=== PATIENT | male | born 1985 | race Caucasian/White ===

== ENCOUNTER 2016-12-28 16:10 | Observation (INO) | payer BC ==
[2016-12-28] MEDS: RESP: ALBUTEROL 2.5 MG/IPRATROPIUM 0.5 MG NEB (SCH) NEB ×5 (12:00→23:49)
[~2016-12-28 16:10] MED LIST: IOHEXOL 350 MG/ML 10 ML VIAL (for RAD DIAG) IVCONTRAST ONE; MEDR4PAK PO; PEDISOL2 OROPHARYNG; RESP: ALBUTEROL 2.5 MG/3 ML NEB (PRN) NEB; VENTAER INH
--- NOTE | 2016-12-28 17:11 | HHI.HP ---
[facility] Admission Diagnosis Diagnoses: (1) Hypoxia Diagnosis: Principal (2) Bronchospasm Diagnosis: Principal (3) Leukocytosis Diagnosis: Principal (4) Hyperglycemia Diagnosis: Principal Chief Complaint: Shortness of breath and dyspnea Travel History International Travel<30 Days: No (\) Contact w/Intl Traveler <30 Da: No (\) Traveled to Known Affected Are: No Sepsis Criteria SIRS Criteria (2 or more): Heart rate over 90, WBC > 39822, < 4000 or > 10% bands Sepsis Criteria (SIRS+source): Infect source susp/known Criteria Outcome: Meets sepsis criteria History of Present Illness Written by Alfa Wallace, acting as scribe for Dr. Damon on 12/28/16 at 17 :01. 31-year-old male with no chronic medical illnesses who presented to hospital because of shortness of breath, dyspnea. Patient states that he was in normal state of health approximately one week ago he started developing cold symptoms with upper respiratory symptoms to include rhinorrhea, sore throat, cough, congestion. Patient has been using [id number] medications to include nasal spray, Mucinex, cough medicine with minimal improvement. Patient did improve over the last couple days but then yesterday he started having worsening of his symptoms with shortness of breath, could not breathe, he tried to drink enough fluids and took a hot steam shower without any significant improvement. Patient states that his shortness of breath was worsened whenever he tried to move. He denied any chest pain, nausea, vomiting, cyanosis, fever he stated he had some slight chills. He did vomit whenever he coughed. The patient drove himself to the ER in [place] for evaluation. Patient had workup done and found to have leukocytosis, hypoxia. He was given Solu-Medrol, oxygen supplementation, nebulizer treatments with minimal relief. Patient is recommended continued observation the hospital and management. At the time evaluating patient he states that he is feeling much better. He still has significant and profound wheezing. Patient still coughing and cannot complete full sentences when he speaks. Review of Systems Constitutional: COMPLAINS OF: Chills Ears, nose, mouth, throat: COMPLAINS OF: Nasal discharge, Throat pain, Running Nose Respiratory: COMPLAINS OF: Cough, Sputum production, Shortness of breath Except as stated in HPI: all other systems reviewed are Neg Past Family Social History Past Medical History No chronic illnesses Past Surgical History No previous surgeries Reported Medications No home medications Allergies: Coded Allergies: Penicillins (Verified Allergy, Mild, 12/28/16) Family History Reviewed and unremarkable Social History Patient drinks alcohol occasionally. Denies any tobacco or illicit drug use. Patient does work in a [employer] Physical Exam Physical Exam GENERAL: Well-developed, well-nourished, in no acute distress. alert and orientated HEENT: Head is normocephalic without any lesions or masses noted. Facial features are symmetric. Eyes: Pupils equal round reactive to light. Extraocular muscles are intact. Conjunctivae were clear. Oropharyngeal: Pharynx without any erythema edema. Tongue is midline without deviation. Buccal mucosa is moist without any masses or lesions NECK: Supple without any masses. Trachea midline no deviation. No JVD, no bruits are appreciated CARDIAC: Regular rhythm, regular rate. S1/S2 are heard. No murmurs gallops or rubs. LUNGS: Profound wheezing bilaterally, no rhonchi or rales. No use of accessory muscles on inspiration or expiration. ABDOMEN: Soft, nontender. Nondistended. Bowel sounds heard in all 4 quadrants. No organomegaly or masses. Negative rebound, negative guarding EXTREMITIES: No edema, pulses are equal bilaterally. No cyanosis or clubbing NEUROLOGY: Mood and affect appear appropriate. Cranial nerves II through XII grossly intact. Muscle strength 5/5 in upper and lower extremities bilaterally. Deep tendon reflexes are 2+ in upper and lower extremities bilaterally. Septic Shock Reassessment Lungs: Other (profound wheezing) Skin: Coker Peripheral Pulses: Bounding Right Radial Bounding Left Radial Caprini VTE Risk Assessment Caprini VTE Risk Assessment: No/Low Risk (score <= 1) Caprini Risk Assessment Model Point Value = 1 Point Value = 2 Point Value = 3 Point Value = 5 Age 41-60 Minor surgery BMI > 25 kg/m2 Swollen legs Varicose veins or History of unexplained or recurrent spontaneous Oral contraceptives or hormone replacement Sepsis (< 1 month) Serious lung disease, including pneumonia (< 1 month) Abnormal pulmonary function Acute myocardial infarction Congestive heart failure (< 1 month) History of inflammatory bowel disease Medical patient at bed rest Age 61-74 Arthroscopic surgery Major open surgery (> 45 min) Laparoscopic surgery (> 45 min) Malignancy Confined to bed (> 72 hours) Immobilizing plaster cast Central venous access Age >= 75 History of VTE Family history of VTE Factor V Leiden Prothrombin [id number] Lupus anticoagulant Anticardiolipin antibodies Elevated serum homocysteine Heparin-induced thrombocytopenia Other congenital or acquired thrombophilia Stroke (< 1 month) Elective arthroplasty Hip, pelvis, or leg fracture Acute spinal cord injury (< 1 month) Prophylaxis Regimen Total Risk Factor Score Risk Level Prophylaxis Regimen 0-1 Low Early ambulation 2 Moderate Order ONE of the following: *Sequential Compression Device (SCD) *Heparin 5000 units SQ BID 3-4 Higher Order ONE of the following medications: *Heparin 5000 units SQ TID *Enoxaparin/Lovenox 40 mg SQ daily (WT < 150 kg, CrCl > 30 mL/min) *Enoxaparin/Lovenox 30 mg SQ daily (WT < 150 kg, CrCl > 10-29 mL/min) *Enoxaparin/Lovenox 30 mg SQ BID (WT < 150 kg, CrCl > 30 mL/min) AND/OR *Sequential Compression Device (SCD) 5 or more Highest Order ONE of the following medications: *Heparin 5000 units SQ TID (Preferred with Epidurals) *Enoxaparin/Lovenox 40 mg SQ daily (WT < 150 kg, CrCl > 30 mL/min) *Enoxaparin/Lovenox 30 mg SQ daily (WT < 150 kg, CrCl > 10-29 mL/min) *Enoxaparin/Lovenox 30 mg SQ BID (WT < 150 kg, CrCl > 30 mL/min) AND *Sequential Compression Device (SCD) Assessment and Plan Assessment and Plan Acute bronchospasm with hypoxia secondary to upper respiratory infection Continue O2 supplementation maintain O2 sats greater than 92% Pt given zithromax. strep and influenza testing neg Continue Solu-Medrol IV Continue nebulizer treatments Incentive spirometry f/u legionella and bronchospasm Leukocytosis Could be reactive or secondary to infection We'll anticipate worsening with steroid use Hyperglycemia Likely from steroid administration, monitor DVT prevention Low risk, early ambulation This note was transcribed by adriana Wallace. I personally performed the history, physical exam, and medical decision making; and confirmed the accuracy of information in the transcribed note. Authenticated by Dayne Damon on 18:10. Alfa Wallace Dec 28, 2016 17:11 Dayne Damon MD Dec 28, 2016 18:09
[2016-12-28 17:15] VITALS: O2SAT 93
[2016-12-28] MEDS ORDERED: CALCIUM CARBONATE 500 MG CHEWABLE TAB CHEW PRN (17:15)
[2016-12-28] MEDS ORDERED: ONDANSETRON HCL 4 MG/2 ML VIAL IV PRN (17:15)
[2016-12-28] MEDS ORDERED: MAGNESIUM HYDROXIDE SUSP 30 ML CUP PO PRN (17:15)
[2016-12-28] MEDS ORDERED: ACETAMINOPHEN 325 MG TAB PO PRN (17:15)
[2016-12-28] MEDS ORDERED: DOCUSATE SODIUM 100 MG CAP PO PRN (17:15)
[2016-12-28] MEDS: methylPREDNISolone SOD SUCC 125 MG/2 ML VIAL IV PUSH SCH (17:49)
[2016-12-28 19:35] VITALS: O2SAT 93
[2016-12-28 20:00] VITALS: BP 138/77; PULSE 122; RESP 18; TEMP 96.5; O2SAT 94
[2016-12-29] VITALS (8 sets, daily range): BP systolic 109–146; BP diastolic 67–80; PULSE 118–128; RESP 20–21; TEMP 95.6–98.9; O2SAT 91–95
[2016-12-29] MEDS: methylPREDNISolone SOD SUCC 125 MG/2 ML VIAL IV PUSH SCH ×3 (00:28→18:01)
[2016-12-29] MEDS: TEMAZEPAM 15 MG CAP PO PRN ×2 (00:31→21:40)
[2016-12-29] MEDS: RESP: ALBUTEROL 2.5 MG/IPRATROPIUM 0.5 MG NEB (SCH) NEB ×5 (03:26→20:46)
[2016-12-29 07:02] LABS: AUTOMATED NEUTROPHIL # 24.7 TH/MM3 (1.8-7.7); BASOPHIL # 0.1 TH/MM3 (0-0.2); BASOPHIL % 0.2 % (0.0-2.0); EOSINOPHIL % 0.1 % (0.0-4.0); HEMATOCRIT 43.9 % (39.0-51.0); LYMPH % 5.3 % (9.0-44.0); LYMPHOCYTE # 1.4 TH/MM3 (1.0-4.8); MEAN CORPUSCULAR HEMOGLOBIN 30.9 PG (27.0-34.0); MEAN CORPUSCULAR HGB CONC 33.6 % (32.0-36.0); MONO % 0.7 % (0.0-8.0); NEUT % 93.7 % (16.0-70.0); PLATELET COUNT 388 TH/MM3 (150-450); RED BLOOD COUNT 4.77 MIL/MM3 (4.50-5.90); RED CELL DISTRIBUTION WIDTH 12.9 % (11.6-17.2); WHITE BLOOD COUNT 26.4 TH/MM3 (4.0-11.0)
[2016-12-29 07:14] LABS: HEMO FLAGS AUTO DIFF
[2016-12-29 07:49] LABS: SCAN/DIFF AUTO DIFF CONFIRMED
[2016-12-29] MEDS: AZITHROMYCIN 250 MG TAB PO SCH (09:49)
--- NOTE | 2016-12-29 11:54 | HHI.PR ---
Subjective Remarks Patient reports that his dyspnea is improved since yesterday, says that making about 3 rounds walking within his room gets him tired, still feels like he cannot walk one block without getting winded. While sedentary, has no issues, no distress Confirms that taking deep breaths causes him to cough profoundly. Case discussed with respiratory therapy and nursing, patient is barely saturating at 91% on room air. Objective Vital Signs Date Time Temp Pulse Resp B/P (MAP) Pulse Ox O2 Delivery O2 Flow Rate FiO2 12/29/16 08:00 Nasal Cannula 3.00 12/29/16 08:00 97.2 118 20 130/80 (97) 91 12/29/16 07:21 95 Nasal Cannula 3.00 12/29/16 04:04 20 94 12/29/16 00:45 94 Nasal Cannula 12/29/16 00:00 96.4 119 20 146/73 (97) 91 12/28/16 20:00 96.5 122 18 138/77 (97) 94 12/28/16 19:35 93 Nasal Cannula 3.00 12/28/16 17:15 93 Nasal Cannula 3.00 I/O 12/28/16 12/28/16 12/28/16 12/29/16 12/29/16 12/29/16 07:00 15:00 23:00 07:00 15:00 23:00 Intake Total 500 ml Balance 500 ml Intake Oral 500 ml # Voids 3 Result Diagram: 12/29/16 0640 Objective Remarks No acute distress lying in bed Moderate expiratory wheezing with good breath sounds, has profound coughing when taking deep breaths, no cyanosis Dayne Damon MD Dec 29, 2016 11:54
[2016-12-29] MEDS ORDERED: IOHEXOL 350 MG/ML 10 ML VIAL (for RAD DIAG) IVCONTRAST ONE (13:26)
--- NOTE | 2016-12-29 13:36 | RADRPT ---
EXAM DATE/TIME: 12/29/2016 13:17 [facility] COMPARISON: No previous studies available for comparison. INDICATIONS : Short of breath with dyspnea. Evaluate for embolism. IV CONTRAST: 65 cc Omnipaque 350 (iohexol) IV RADIATION DOSE: 13.51 CTDIvol (mGy) MEDICAL HISTORY : None SURGICAL HISTORY : None. ENCOUNTER: Initial ACUITY: 4 - 6 days PAIN SCALE: 0/10 LOCATION: chest TECHNIQUE: Volumetric scanning of the chest was performed using a pulmonary embolism protocol MIP images were re constructed. Using automated exposure control and adjustment of the mA and/or kV according to patien t size, radiation dose was kept as low as reasonably achievable to obtain optimal diagnostic quality images. DICOM format image data is available electronically for review and comparison. Follow-up recommendations for detected pulmonary nodules are based at a minimum on nodule size and pa tient risk factors according to Fleischner Society Guidelines. FINDINGS: PULMONARY ARTERIES: No filling defects are seen in the pulmonary arteries through the segmental level. LUNGS: There is no consolidation or pneumothorax . Minimal dependent atelectasis. No concerning pulmonary n odule is visualized. PLEURAE: There is no pleural thickening or pleural effusion. MEDIASTINUM: There is good visualization of the great vessels of the middle mediastinum. No evidence of mediastin al or hilar adenopathy/mass. MUSCULOSKELETAL: Within normal limits for patient age. MISCELLANEOUS: The visualized upper abdominal organs demonstrate no acute abnormality. CONCLUSION: 1. Negative for pulmonary embolism. Minimal dependent atelectasis in the lungs. Omero Avelar MD on December 29, 2016 at 13:31 Board Certified Radiologist. This report was verified electronically.
[2016-12-29] MEDS ORDERED: SODIUM CHLOR 0.9% 1000 ML INJ 1,000 ML IV ONE (14:00)
[2016-12-30] VITALS: BP 137/77; PULSE 102; RESP 20; TEMP 98; O2SAT 91
[2016-12-30] MEDS: methylPREDNISolone SOD SUCC 125 MG/2 ML VIAL IV PUSH SCH ×2 (00:56→09:26)
[2016-12-30 03:56] VITALS: O2SAT 94
[2016-12-30] MEDS: RESP: ALBUTEROL 2.5 MG/IPRATROPIUM 0.5 MG NEB (SCH) NEB ×4 (03:56→10:36)
[2016-12-30 04:12] VITALS: RESP 20
[2016-12-30 06:35] LABS: POTASSIUM 4.2 MEQ/L (3.5-5.1)
[2016-12-30 06:40] LABS: AUTOMATED NEUTROPHIL # 30.4 TH/MM3 (1.8-7.7); BASOPHIL % 0.1 % (0.0-2.0); EOSINOPHIL % 0.1 % (0.0-4.0); HEMATOCRIT 39.5 % (39.0-51.0); LYMPH % 3.5 % (9.0-44.0); LYMPHOCYTE # 1.1 TH/MM3 (1.0-4.8); MEAN CELL VOLUME 92.5 FL (80.0-100.0); MEAN CORPUSCULAR HEMOGLOBIN 32.1 PG (27.0-34.0); MEAN CORPUSCULAR HGB CONC 34.7 % (32.0-36.0); MONO % 1.4 % (0.0-8.0); NEUT % 94.9 % (16.0-70.0); PLATELET COUNT 328 TH/MM3 (150-450); RED BLOOD COUNT 4.27 MIL/MM3 (4.50-5.90); RED CELL DISTRIBUTION WIDTH 13.1 % (11.6-17.2); WHITE BLOOD COUNT 31.9 TH/MM3 (4.0-11.0)
[2016-12-30 06:44] LABS: HEMO FLAGS AUTO DIFF
[2016-12-30 07:36] LABS: BANDS 3 % (0-6); NEUTROPHIL # MANUAL DIFF 29.3 TH/MM3 (1.8-7.7); PLATELET ESTIMATE SMEAR NORMAL (NORMAL); PLATELET MORPHOLOGY NORMAL (NORMAL); POLYS (SEG NEUTROPHILS) 89 % (16-70); SCAN/DIFF FINAL DIFF MANUAL; WBC DIFF SAMPLE 100
[2016-12-30 07:46] VITALS: O2SAT 95
[2016-12-30 08:00] VITALS: BP 135/80; PULSE 118; RESP 21; O2SAT 90; O2SAT 91
[2016-12-30] MEDS: AZITHROMYCIN 250 MG TAB PO SCH (09:26)
--- NOTE | 2016-12-30 09:40 | HHI.DCPOC ---
Discharge Care Plan Your Health Problems Are: Shortness of Breath Goals to Promote Your Health * To prevent worsening of your condition and complications * To maintain your health at the optimal level Directions to Meet Your Goals Take your medications as prescribed Follow your dietary instruction Follow activity as directed Keep your appointments as scheduled Take your immunizations and boosters as scheduled If your symptoms worsen call your PCP, if no PCP go to Urgent Care Center or Emergency Room Smoking is Dangerous to Your Health. Avoid second hand smoke Call the 24-hour hour crisis hotline for domestic abuse at Dayne Damon MD Dec 30, 2016 09:39
[2016-12-30] MEDS ORDERED: ALBU.5I NEB (09:43)
[2016-12-30] MEDS ORDERED: NEBUKIT5 (09:43)
[2016-12-30] MEDS ORDERED: NEBULIZER1 MI1 (09:43)
[2016-12-30] MEDS ORDERED: PRED20 PO (09:52)
[2016-12-30] MEDS ORDERED: INSPIREASE DRUG1 EA (09:52)
[2016-12-30] MEDS ORDERED: PRED5PAK PO (09:52)
--- NOTE | 2016-12-30 09:52 | HHI.DS ---
Discharge Summary Admission Date Dec 28, 2016 at 16:11 Discharge Date: Dec 30, 2016 Admitting Diagnosis acute resp failure w/ hypoxia 2/2 bronchitis (1) Hypoxia ICD Code: R09.02 - Hypoxemia Diagnosis: Principal Status: Resolved (2) Bronchospasm ICD Code: J98.01 - Acute bronchospasm Diagnosis: Principal Status: Acute (3) Leukocytosis ICD Code: D72.829 - Elevated white blood cell count, unspecified Diagnosis: Secondary Procedures None Brief History - From Admission Written by Alfa Wallace, acting as scribe for Dr. Damon on 12/28/16 at 17 :01. 31-year-old male with no chronic medical illnesses who presented to hospital because of shortness of breath, dyspnea. Patient states that he was in normal state of health approximately one week ago he started developing cold symptoms with upper respiratory symptoms to include rhinorrhea, sore throat, cough, congestion. Patient has been using zgyr-[id number] medications to include nasal spray, Mucinex, cough medicine with minimal improvement. Patient did improve over the last couple days but then yesterday he started having worsening of his symptoms with shortness of breath, could not breathe, he tried to drink enough fluids and took a hot steam shower without any significant improvement. Patient states that his shortness of breath was worsened whenever he tried to move. He denied any chest pain, nausea, vomiting, cyanosis, fever he stated he had some slight chills. He did vomit whenever he coughed. The patient drove himself to the ER in [place] for evaluation. Patient had workup done and found to have leukocytosis, hypoxia. He was given Solu-Medrol, oxygen supplementation, nebulizer treatments with minimal relief. Patient is recommended continued observation the hospital and management. At the time evaluating patient he states that he is feeling much better. He still has significant and profound wheezing. Patient still coughing and cannot complete full sentences when he speaks. CBC/BMP: 12/30/16 0614 12/30/16 0614 Significant Findings Laboratory Tests Test 12/29/16 06:40 12/30/16 06:14 White Blood Count 26.4 TH/MM3 (4.0-11.0) 31.9 TH/MM3 (4.0-11.0) Neutrophils (%) (Auto) 93.7 % (16.0-70.0) 94.9 % (16.0-70.0) Lymphocytes (%) (Auto) 5.3 % (9.0-44.0) 3.5 % (9.0-44.0) Neutrophils # (Auto) 24.7 TH/MM3 (1.8-7.7) 30.4 TH/MM3 (1.8-7.7) Red Blood Count 4.27 MIL/MM3 (4.50-5.90) Neutrophils % (Manual) 89 % (16-70) Lymphocytes % 4 % (9-44) Neutrophils # (Manual) 29.3 TH/MM3 (1.8-7.7) Random Glucose 161 MG/DL (74-106) Estimat Glomerular Filtration Rate 78 ML/MIN (>89) Imaging Last Impressions CT Angiography 12/29/16 0000 Signed Impressions: Service Date/Time: Thursday, December 29, 2016 13:17 - CONCLUSION: 1. Negative for pulmonary embolism. Minimal dependent atelectasis in the lungs. Omero Avelar MD PE at Discharge Faint expiratory wheezing, good breath sounds otherwise, unlabored breathing Hospital Course Patient was admitted and started on IV steroids, DuoNeb's, and albuterol. Due to persistent hypoxia his stay was slightly prolonged and a CT pulmonary angiogram with complete visualization of lung daigle was performed which did not show any acute abnormalities or embolism. Patient's hypoxia eventually resolved and maintain sats at 92% while ambulating without significant dyspnea upon his last day. Patient has met maximum benefit from hospitalization and is clinically stable for discharge. He was counseled to follow-up with his primary care doctor to monitor his electrolytes and kidney function, and also his blood counts - he was informed that his leukocytosis was likely steroid induced and that this would remain high as long as he is on steroids and would eventually taper off but that this would need to be monitored to ensure normalization nonetheless. He was also informed that it would be best in the outpatient setting for him to undergo asthma diagnostic testing. Pt Condition on Discharge: Stable Discharge Disposition: Discharge Home Discharge Time: > 30 minutes Discharge Instructions DIET: Follow Instructions for: As Tolerated, No Restrictions Speech Therapy-Diet Recommends: Regular Activities you can perform: Regular-No Restrictions Follow up Referrals: PCP Follow-up - 10 Days Pulmonology - 2 Weeks with Marcy Morley MD New Medications: Albuterol 8.5 GM Inh (Proair Hfa 8.5 GM Inh) 90 Mcg/Act Aer 2 PUFF INH Q6H PRN for SHORTNESS OF BREATH, #1 INHALER 0 Refills 108 mcg/actuation Albuterol Neb (Albuterol Neb) 2.5 Mg/0.5 Ml Neb 2.5 MG NEB TID NEB PRN for SHORTNESS OF BREATH, #90 NEBULE 0 Refills Note: The Albuterol Sulfate Inhalation Solution is concentrated and must be diluted. Read complete instructions carefully before using. Budesonide-Formoterol Inh (Symbicort Inh) 80-4.5 Mcg/Act Aero 1 PUFF INH Q12HR for Asthma Management, #1 INHALER 0 Refills Nebulizer (Nebulizer) 1 Mis Mis EA .ROUTE DIRECTED for Breathing Treatment, #1 0 Refills Nebulizer Kit/Tubing/Mout (Nebulizer Kit/Tubing/Mout) 1 Kit Kit KIT .ROUTE DIRECTED for Breathing Treatment, #1 0 Refills Prednisone (21) 10 mg tab Dose Pack (Prednisone (21) 10 mg tab Dose Pack) 10 Mg Pack 10 MG PO DIRECTED for Inflammation, #1 DSPK 0 Refills Spacer/Device For Mdi (Inspirease Drug Delivery) 1 Ea Mis EA .ROUTE DIRECTED, #1 0 Refills Azithromycin (Azithromycin) 250 Mg Tab 250 MG PO DAILY for bronchitis, #3 TAB Dayne Damon MD Dec 30, 2016 09:52
[2016-12-30] MEDS ORDERED: AZIT250T3 PO (09:53)
[2016-12-30] MEDS ORDERED: RESP: ACETYLCYSTEINE 20% 30 ML NEB NEB ONE (10:00)
[2016-12-30] MEDS ORDERED: SYMB80AE INH (10:53)
[2016-12-30] MEDS ORDERED: PRED10PA PO (11:00)
[2016-12-30] MEDS ORDERED: ALBUAER3 INH (14:54)
== END 2016-12-30 12:09 | disposition home or self-care (01) ==
LOC: PHEDDLT 16:10 → PH3A 16:11
PROVIDERS: ADMIT Hospitalist; ATTEND Hospitalist
DX: J98.01 Acute bronchospasm (principal); J96.01 Acute respiratory failure with hypoxia; J06.9 Acute upper respiratory infection, unspecified; J40 Bronchitis, not specified as acute or chronic; R73.9 Hyperglycemia, unspecified; D72.829 Elevated white blood cell count, unspecified
CPT/HCPCS: 36600; 71020; 71275; 80048; 80053; 81001; 82805; 84484; 85007; 85025; 85027; 87081; 87804; 87880; 94150; 94620; 94640; 94664; 96360; 96361; 96374; 96376; 99285; G0378; J2930; J7030; J7608; J7613; Q9967